=== PATIENT | female | born 1930 | race Caucasian/White ===

== ENCOUNTER 2017-10-04 09:40 | Emergency (ER) | payer MEDICARE ==
[2017-10-04 10:20] LABS: BASOPHILS % (AUTO) 0.7 % (0.0-5.0); EOSINOPHILS % (AUTO) 1.3 % (0.0-8.0); HEMATOCRIT 38.3 % (36-48); MEAN CORPUSCULAR HEMOGLOBIN 28.3 pg (27.0-33.0); MEAN CORPUSCULAR HGB CONC 33.8 g/dL (32.0-36.0); MONOCYTES % (AUTO) 7.5 % (3.0-13.0); NEUTROPHILS % (AUTO) 80.5 % (40.0-77.0); NUCLEATED RED BLOOD CELLS 0.1 % (0.0-0.19); PLATELET COUNT (AUTO) 235 K/uL (130-400); RED BLOOD CELL COUNT(AUTO) 4.56 MIL/uL (4.00-5.50); RED CELL DISTRIBUTION WIDTH 15.3 % (11.0-15.5); WHITE BLOOD COUNT (AUTO) 7.6 K/uL (4.8-10.8)
[2017-10-04 10:31] LABS: CREATININE 0.7 mg/dL (0.5-1.5); POTASSIUM 3.8 mmol/L (3.5-5.1)
[2017-10-04 10:44] LABS: INR 1.06 (0.85-1.15); PARTIAL THROMBOPLASTIN TIME 30.8 SEC (26.3-35.5); PROTHROMBIN TIME 11.1 SEC (9.6-11.6)
[2017-10-04 10:45] LABS: ALBUMIN 3.3 g/dL (3.5-5.0); BILIRUBIN,TOTAL 0.5 mg/dL (0.2-1.0); CREATINE KINASE MB 1.2 ng/mL (0.5-3.6); TOTAL PROTEIN, SERUM 7.6 g/dL (6.0-8.3)
[2017-10-04 10:54] LABS: APPEARANCE,URINE Clear (CLEAR); BILIRUBIN,URINE Negative (NEGATIVE); COLOR,URINE Yellow (YELLOW); GLUCOSE, URINE (UA) Negative (NEGATIVE); KETONES,URINE Negative (NEGATIVE); LEUKOCYTE ESTERASE ,URINE Small (NEGATIVE); NITRATE,URINE Negative (NEGATIVE); OCCULT BLOOD,URINE Negative (NEGATIVE); PROTEIN,URINE Negative (NEGATIVE)
[2017-10-04] MEDS ORDERED: SODIUM CHLORIDE 0.9% 1000ML 1,000 ML IV ONE (10:58)
[2017-10-04 10:59] LABS: BACTERIA,URINE Rare /HPF (None Seen); SQUAMOUS EPITHELIAL CELL,UR Rare /HPF (0-2); WBC,URINE 0-1 /HPF (0-1)
[2017-10-04 11:02] LABS: AMPHET/METH SCREEN,URINE NEGATIVE (NEGATIVE); BARBITURATE SCREEN, URINE NEGATIVE (NEGATIVE); BENZODIAZEPINES SCREEN,URINE NEGATIVE (NEGATIVE); CANNABINOID SCREEN,URINE NEGATIVE (NEGATIVE); COCAINE SCREEN,URINE NEGATIVE (NEGATIVE); OPIATE SCREEN,URINE NEGATIVE (NEGATIVE); PHENCYCLIDINE SCREEN,URINE NEGATIVE (NEGATIVE)
[2018-01-02] MEDS ORDERED: BUSP15 PO (15:02)
[2018-01-02] MEDS ORDERED: BUSP15TA3 PO (15:02)
[2018-01-02] MEDS ORDERED: APIX2.5T PO (15:02)
[2018-01-02] MEDS ORDERED: AMLO5TAB2 PO (15:02)
[2018-01-02] MEDS ORDERED: ISOS30TA6 PO (15:02)
[2018-01-02] MEDS ORDERED: ESCI10TA PO (15:02)
[2018-01-02] MEDS ORDERED: METO25TA3 PO (15:02)
== END 2017-10-04 14:02 | disposition home or self-care (01) ==
LOC: EDH 09:40
DX: F41.1 Generalized anxiety disorder (principal); I48.91 Unspecified atrial fibrillation; I10 Essential (primary) hypertension
CPT/HCPCS: 36415; 70450; 71045; 80053; 80305; 81001; 82550; 82553; 83874; 84484; 85025; 85610; 85730; 93005; 94761; 99285; J7030; 96360; 96361

== ENCOUNTER 2018-09-01 17:16 | Emergency (ER) | payer MEDICARE ==
[~2018-09-01 17:16] MED LIST: AMLO5TAB9 PO; APIX2.5T PO; BUSP15 PO; ESCI10TA PO; ISOS30TA6 PO; METO25TA3 PO
[2018-09-01] MEDS ORDERED: SODIUM CHLORIDE 0.9% 500ML 500 ML IV ONE ×2 (18:41→20:49)
[2018-09-01 19:00] LABS: HEMATOCRIT 36.1 % (36-48); LYMPHOCYTES % (AUTO) 12.4 % (21.0-51.0); MEAN CORPUSCULAR HEMOGLOBIN 29.6 pg (27.0-33.0); MEAN CORPUSCULAR HGB CONC 33.5 g/dL (32.0-36.0); MEAN CORPUSCULAR VOLUME 88.2 fL (79-99); MONOCYTES % (AUTO) 9.7 % (3.0-13.0); NEUTROPHILS % (AUTO) 75.9 % (40.0-77.0); PLATELET COUNT (AUTO) 208 K/uL (130-400); RED CELL DISTRIBUTION WIDTH 13.4 % (11.0-15.5); WHITE BLOOD COUNT (AUTO) 8.4 K/uL (4.8-10.8)
[2018-09-01 19:16] LABS: ALBUMIN 3.1 g/dL (3.5-5.0); BILIRUBIN,TOTAL 0.5 mg/dL (0.2-1.0); CREATININE 0.8 mg/dL (0.5-1.5); POTASSIUM 3.4 mmol/L (3.5-5.1); TOTAL PROTEIN, SERUM 7.6 g/dL (6.0-8.3)
[2018-09-01 20:08] LABS: BILIRUBIN,URINE Negative (NEGATIVE); COLOR,URINE Yellow (YELLOW); GLUCOSE, URINE (UA) Negative (NEGATIVE); KETONES,URINE Negative (NEGATIVE); LEUKOCYTE ESTERASE ,URINE Large (NEGATIVE); NITRATE,URINE Negative (NEGATIVE); OCCULT BLOOD,URINE Negative (NEGATIVE); PROTEIN,URINE Trace (NEGATIVE)
[2018-09-01 20:12] LABS: APPEARANCE,URINE SLIGHTLY CLOUDY (CLEAR)
[2018-09-01 20:22] LABS: RBC,URINE 0-1 /HPF (0-1)
[2018-09-01 20:23] LABS: BACTERIA,URINE Few /HPF (None Seen); SQUAMOUS EPITHELIAL CELL,UR Few /HPF (0-2)
[2018-09-01 20:25] LABS: MUCUS,URINE Rare LPF (None Seen)
[2018-09-01] MEDS ORDERED: LIDOCAINE 5% TOPICAL PATCH TP ONE (21:09)
== END 2018-09-01 22:58 | disposition home or self-care (01) ==
LOC: EDH 17:16
DX: S00.03XA Contusion of scalp, initial encounter (principal); S20.212A Contusion of left front wall of thorax, initial encounter; E87.1 Hypo-osmolality and hyponatremia; E86.0 Dehydration; I48.91 Unspecified atrial fibrillation; F41.9 Anxiety disorder, unspecified; I10 Essential (primary) hypertension; W01.0XXA Fall on same level from slipping, tripping and stumbling without subsequent striking against object, initial encounter; Y93.89 Activity, other specified; Y92.89 Other specified places as the place of occurrence of the external cause; Y99.8 Other external cause status
CPT/HCPCS: 36415; 70450; 80053; 81001; 82270; 84443; 85025; 99284; J7040 ×2

== ENCOUNTER 2019-05-30 17:49 | Inpatient (IN) | payer MEDICARE ==
[~2019-05-30] VITALS: Ht 175.3 cm; Wt 67.4 kg
[2019-05-30 18:22] LABS: BASOPHILS % (AUTO) 0.2 % (0.0-5.0); HEMATOCRIT 42.3 % (36-48); LYMPHOCYTES % (AUTO) 8.9 % (21.0-51.0); MEAN CORPUSCULAR HEMOGLOBIN 29.4 pg (27.0-33.0); MEAN CORPUSCULAR HGB CONC 32.8 g/dL (32.0-36.0); MEAN CORPUSCULAR VOLUME 89.6 fL (79-99); MONOCYTES % (AUTO) 6.2 % (3.0-13.0); NEUTROPHILS % (AUTO) 84.7 % (40.0-77.0); PLATELET COUNT (AUTO) 152 K/uL (130-400); RED BLOOD CELL COUNT(AUTO) 4.72 MIL/uL (4.00-5.50); RED CELL DISTRIBUTION WIDTH 13.8 % (11.0-15.5)
[2019-05-30 18:32] LABS: CREATININE 0.9 mg/dL (0.5-1.5); POTASSIUM 3.9 mmol/L (3.5-5.1)
[2019-05-30 18:37] LABS: ALBUMIN 3.4 g/dL (3.5-5.0); BILIRUBIN,TOTAL 0.5 mg/dL (0.2-1.0); TOTAL PROTEIN, SERUM 8.2 g/dL (6.0-8.3)
[2019-05-30] MEDS ORDERED: SODIUM CHLORIDE 0.9% 1000ML 1,000 ML IV ONE ×2 (19:16→22:51)
[2019-05-30] MEDS ORDERED: IPRATROPIUM/ALBUTEROL SULFATE 3 ML SOLUTION IH ONE (19:38)
[2019-05-30 19:46] LABS: INR 1.09 (0.85-1.15); PARTIAL THROMBOPLASTIN TIME 28.7 SEC (26.3-35.5); PROTHROMBIN TIME 11.4 SEC (9.6-11.6)
[2019-05-30] MEDS ORDERED: IOHEXOL-350 75 ML VIAL IV ONE (21:17)
[2019-05-30] MEDS: SODIUM CHLORIDE 0.9% 1000ML 1,000 ML IV SCH (22:17)
[2019-05-30] MEDS ORDERED: SODIUM CHLORIDE 0.9% 1000ML 1,000 ML IV SCH (22:24)
[2019-05-30] MEDS ORDERED: ONDANSETRON HCL 4 MG/2 ML VIAL IV PRN ×2 (22:30)
[2019-05-30] MEDS: METHYLPREDNISOLONE SOD SUCC 125MG/2ML VIAL IV SCH (22:30)
[2019-05-30] MEDS: CEFTRIAXONE SODIUM 1 GM IV SCH (22:30)
[2019-05-30] MEDS ORDERED: CEFTRIAXONE SODIUM 1 GM IV SCH (22:30)
[2019-05-30] MEDS ORDERED: METHYLPREDNISOLONE SOD SUCC 125MG/2ML VIAL IV SCH (22:30)
[2019-05-30] MEDS ORDERED: HYDRALAZINE HCL 20 MG/ML VIAL IV PRN ×2 (22:30)
[2019-05-30] MEDS ORDERED: AZITHROMYCIN 500MG+NS 250ML 250 ML IV SCH (22:30)
[2019-05-30] MEDS ORDERED: ACETAMINOPHEN 325 MG TAB PO PRN ×4 (22:30)
[2019-05-30] MEDS ORDERED: METHYLPREDNISOLONE SOD SUCC 40MG/ML 1ML ONE (22:51)
[2019-05-30] MEDS ORDERED: CEFTRIAXONE SODIUM 1 GM ONE (22:51)
[2019-05-31] VITALS (7 sets, daily range): BP systolic 141–167; BP diastolic 73–97
[2019-05-31] MEDS: IPRATROPIUM/ALBUTEROL SULFATE 3 ML SOLUTION IH SCH ×5 (00:31→23:34)
[2019-05-31] MEDS: AZITHROMYCIN 500MG+NS 250ML 250 ML IV SCH ×2 (01:43→22:41)
[2019-05-31] MEDS ORDERED: DOCU100T PO (01:56)
[2019-05-31] MEDS ORDERED: ESCI5SOL4 PO (01:56)
[2019-05-31] MEDS ORDERED: GUAIFENESIN-CODEINE 5 ML SYRUP PO PRN (03:45)
[2019-05-31] MEDS ORDERED: GUAIFENESIN-CODEINE 5 ML SYRUP ONE (03:55)
[2019-05-31] MEDS: METHYLPREDNISOLONE SOD SUCC 125MG/2ML VIAL IV SCH ×3 (06:07→22:41)
[2019-05-31 06:27] LABS: BASOPHILS % (AUTO) 0.2 % (0.0-5.0); HEMATOCRIT 39.5 % (36-48); LYMPHOCYTES % (AUTO) 8.4 % (21.0-51.0); MEAN CORPUSCULAR HEMOGLOBIN 30.3 pg (27.0-33.0); MEAN CORPUSCULAR HGB CONC 33.5 g/dL (32.0-36.0); MEAN CORPUSCULAR VOLUME 90.4 fL (79-99); MONOCYTES % (AUTO) 2.7 % (3.0-13.0); NEUTROPHILS % (AUTO) 88.7 % (40.0-77.0); PLATELET COUNT (AUTO) 114 K/uL (130-400); RED BLOOD CELL COUNT(AUTO) 4.36 MIL/uL (4.00-5.50); RED CELL DISTRIBUTION WIDTH 13.1 % (11.0-15.5); WHITE BLOOD COUNT (AUTO) 5.7 K/uL (4.8-10.8)
[2019-05-31 06:46] LABS: ALBUMIN 3.3 g/dL (3.5-5.0); BILIRUBIN,TOTAL 0.5 mg/dL (0.2-1.0); CREATININE 0.5 mg/dL (0.5-1.5); POTASSIUM 3.6 mmol/L (3.5-5.1); TOTAL PROTEIN, SERUM 7.8 g/dL (6.0-8.3)
[2019-05-31] MEDS ORDERED: METOPROLOL TARTRATE 25 MG TAB PO SCH (09:00)
[2019-05-31] MEDS ORDERED: FAMOTIDINE/PF 20 MG/2 ML VIAL IV SCH (09:00)
[2019-05-31] MEDS ORDERED: ENOXAPARIN SODIUM 30 MG/0.3 ML SQ SCH (09:00)
[2019-05-31] MEDS: FAMOTIDINE/PF 20 MG/2 ML VIAL IV SCH ×2 (09:45→22:41)
[2019-05-31] MEDS: METOPROLOL TARTRATE 25 MG TAB PO SCH ×2 (09:45→22:56)
[2019-05-31] MEDS: ENOXAPARIN SODIUM 30 MG/0.3 ML SQ SCH (14:57)
[2019-05-31] MEDS: SODIUM CHLORIDE 0.9% 1000ML 1,000 ML IV SCH (18:17)
--- NOTE | 2019-05-31 18:19 | NUR ---
cm note spoke to pt's spouse pt confused. pt resides athome independent living with spouse, is able to use a walker for ambulation but needs a lot of help. has a caregiver 8-5pm 5days a week for adls and personal care. [place] [facility] [place] discussed possible need for snf level of care, states has been at [facility] in the past. but prefers home unless md really thinks she needs it. pt states he has detention care coverage benefits. and is aware pt is getting weaker. Addendum: 05/31/19 at 1823 by SANTIAGO BENZ CM Amended: Links added.
[2019-05-31] MEDS: CEFTRIAXONE SODIUM 1 GM IV SCH (22:41)
[2019-06-01] MEDS ORDERED: GUAIFENESIN-DM 200/20 MG 10 ML PO PRN (02:45)
[2019-06-01] MEDS ORDERED: GUAIFENESIN-DM 200/20 MG 10 ML ONE (02:46)
[2019-06-01 03:28] VITALS: BP 164/102
[2019-06-01] MEDS: SODIUM CHLORIDE 0.9% 1000ML 1,000 ML IV SCH (03:37)
[2019-06-01] MEDS: IPRATROPIUM/ALBUTEROL SULFATE 3 ML SOLUTION IH SCH ×4 (07:13→23:16)
[2019-06-01 07:53] VITALS: BP 150/83
[2019-06-01] MEDS: METOPROLOL SUCCINATE 12.5 MG PO SCH (09:00)
[2019-06-01] MEDS: DOCUSATE SODIUM 100 MG CAP PO SCH (09:27)
[2019-06-01] MEDS: CITALOPRAM 20 MG TABLET PO SCH (09:27)
[2019-06-01] MEDS: METOPROLOL TARTRATE 25 MG TAB PO SCH ×2 (09:27→22:30)
[2019-06-01] MEDS: ISOSORBIDE MONO 30MG TAB SR PO SCH (09:28)
[2019-06-01] MEDS: AMLODIPINE BESYLATE 5 MG TAB PO SCH (09:28)
[2019-06-01] MEDS: METHYLPREDNISOLONE SOD SUCC 125MG/2ML VIAL IV SCH ×3 (09:29→22:30)
[2019-06-01] MEDS: FAMOTIDINE/PF 20 MG/2 ML VIAL IV SCH ×2 (09:29→22:30)
[2019-06-01] MEDS: ENOXAPARIN SODIUM 30 MG/0.3 ML SQ SCH (09:30)
[2019-06-01 11:40] VITALS: BP 120/73
--- NOTE | 2019-06-01 12:30 | NUR ---
DYSPHAGIA EVAL COMPLETED. +S/S OF ASPIRATION WITH THIN LIQUIDS. RECOMMEND REGULAR TEXTURE, NECTAR-THICK LIQUIDS; PILLS WHOLE WITH LIQUIDS. RECOMMENDATIONS: DYSPHAGIA THERAPY 3-5X WEEK TO INCREASE ORAL MOTOR STRENGTH AND PHARYNGEAL SWALLOW: LTG#1: Pt WILL TOLERATE LEAST RESTRICTIVE DIET TO MEET NUTRITION/HYDRATION WITH NO S/S OF ASPIRATION. LTG#2: SKILLED EDUCATION Pt/FAMILY/STAFF STG#1: Pt WILL PARTICIPATE IN LARYNGEAL ELEVATION/EXCURSION EXERCISES WITH 80% ACCURACY. STG#2: Pt WILL PARTICIPATE IN TONGUE BASE RETRACTION EXERCISES WITH 80% ACCURACY. STG#3: Pt WILL TOLERATE REGULAR TEXTURE, NECTAR-THICK LIQUID DIET WITH NO OVERT S/S OF ASPIRATION. STG#4: Pt WILL TOLERATE THERAPEUTIC TRIALS OF ADVANCED TEXTURE OF THIN LIQUIDS WITH NO OVERT S/S OF ASPIRATION. STG#5: SKILLED EDUCATION Pt/FAMILY/STAFF. Addendum: 06/02/19 at [address] Amended: Links added.
--- NOTE | 2019-06-01 13:58 | NUR ---
RD NOTIFICATION RD consult due to BMI 16.6. Diet: Regular. PO intake <50% and has poor appetite per pt and family. Family along side pt encouraging her to eat lunch at time of visit. BMI is 16.6; classified as underweight. LBM: 06/01 per pt. No complaints of N/V/C/D. Pt is a resident at [facility] where she eats her [address] recommends continue current diet Offer Ensure TID RD will continue to monitor and follow up as needed, thank you. Addendum: 06/01/19 at [address] Amended: Links added.
[2019-06-01 16:00] VITALS: BP 149/78
--- NOTE | 2019-06-01 18:42 | NUR ---
cm note discussed possible snf level of care for this pt, and that spouse will agree if md recommends. states will see pt 1st and speak to spouse
[2019-06-01 20:00] VITALS: BP 157/89
[2019-06-01] MEDS: CEFTRIAXONE SODIUM 1 GM IV SCH (22:29)
[2019-06-01] MEDS: AZITHROMYCIN 500MG+NS 250ML 250 ML IV SCH (22:30)
[2019-06-02] VITALS: BP 149/90
[2019-06-02] MEDS: SODIUM CHLORIDE 0.9% 1000ML 1,000 ML IV SCH ×3 (02:20→18:00)
[2019-06-02 03:48] VITALS: BP 146/88
[2019-06-02 05:08] LABS: HEMATOCRIT 33.7 % (36-48); MEAN CORPUSCULAR HEMOGLOBIN 31.1 pg (27.0-33.0); MEAN CORPUSCULAR HGB CONC 34.6 g/dL (32.0-36.0); MEAN CORPUSCULAR VOLUME 89.9 fL (79-99); PLATELET COUNT (AUTO) 118 K/uL (130-400); RED BLOOD CELL COUNT(AUTO) 3.75 MIL/uL (4.00-5.50); RED CELL DISTRIBUTION WIDTH 13.6 % (11.0-15.5); WHITE BLOOD COUNT (AUTO) 9.1 K/uL (4.8-10.8)
[2019-06-02 05:51] LABS: CARBON DIOXIDE 27 mmol/L (21-32); CHLORIDE 103 mmol/L (101-111); CREATININE 0.4 mg/dL (0.5-1.5); GLOMERULAR FILTR. RATE CALC 160 mL/min (>60); GLUCOSE,RANDOM 143 mg/dL (70-105); PHOSPHORUS 2.8 mg/dL (2.5-4.9); SODIUM SERUM 141 mmol/L (136-145); UREA NITROGEN, BLOOD 15 mg/dL (7-18)
[2019-06-02 05:56] LABS: POTASSIUM 2.6 mmol/L (3.5-5.1)
[2019-06-02] MEDS ORDERED: MAGNESIUM 2GM PREMIX 50ML 50 ML IV ONE (06:07)
[2019-06-02] MEDS ORDERED: POTASSIUM CHLORIDE 10% ELIXIR 20 MEQ/15 ML UDCUP PO PRN (06:15)
[2019-06-02] MEDS ORDERED: MAGNESIUM 2GM PREMIX 50ML 50 ML IV PRN (06:15)
[2019-06-02] MEDS: METHYLPREDNISOLONE SOD SUCC 125MG/2ML VIAL IV SCH ×2 (06:22→15:01)
[2019-06-02] MEDS: IPRATROPIUM/ALBUTEROL SULFATE 3 ML SOLUTION IH SCH ×4 (07:16→23:10)
[2019-06-02 08:00] VITALS: BP 151/83
[2019-06-02] MEDS: AMLODIPINE BESYLATE 5 MG TAB PO SCH (08:59)
[2019-06-02] MEDS: CITALOPRAM 20 MG TABLET PO SCH (08:59)
[2019-06-02] MEDS: ENOXAPARIN SODIUM 30 MG/0.3 ML SQ SCH (08:59)
[2019-06-02] MEDS: DOCUSATE SODIUM 100 MG CAP PO SCH (08:59)
[2019-06-02] MEDS: ISOSORBIDE MONO 30MG TAB SR PO SCH (09:00)
[2019-06-02] MEDS: METOPROLOL SUCCINATE 12.5 MG PO SCH (09:00)
[2019-06-02] MEDS: FAMOTIDINE/PF 20 MG/2 ML VIAL IV SCH ×2 (09:00→21:15)
[2019-06-02] MEDS: METOPROLOL TARTRATE 25 MG TAB PO SCH ×2 (09:00→21:15)
[2019-06-02] MEDS: LIDOCAINE HCL-MPF 1% 2ML VIAL IV PRN ×2 (09:01→12:25)
[2019-06-02] MEDS: POTASSIUM CHLORIDE 20MEQ/100ML 100 ML IV PRN ×2 (09:01→12:25)
[2019-06-02 12:00] VITALS: BP 140/78
--- NOTE | 2019-06-02 13:00 | NUR ---
FAMILY CHOSE [facility] MET W FAMILY AT BEDSIDE; PT SLIGHTLY CONFUSED BUT ALERT- ALL PRESENT WANTING PT TO GO TO A FACILITY TO GET PHYSICAL THERAPY. TIAN SIGNED BY SPOUSE, FACE SHEET UPDATED , ADDED SON'S NAME/ADRESS Addendum: 06/02/19 at 1547 by MURALI MI RN CM Amended: Links added.
--- NOTE | 2019-06-02 15:36 | NUR ---
CM NOTE CLINICALS,PASSR, AND THERAPY NOTES FAXED TO [facility] PER SNF REFERRAL ORDER. [facility] SORTER/ASSAY TECH AWARE OF REFERRAL AND PENDING TO SEE PATIENT, PENDING AUTHORIZATION.
[2019-06-02 16:00] VITALS: BP_SYST 121; BP_SYST 129; BP_DIAS 51; BP_DIAS 71
[2019-06-02 20:00] VITALS: BP 152/92
[2019-06-02] MEDS: AZITHROMYCIN 500MG+NS 250ML 250 ML IV SCH (21:15)
[2019-06-02] MEDS: CEFTRIAXONE SODIUM 1 GM IV SCH (21:16)
[2019-06-02] MEDS: POTASSIUM CHLORIDE 20 MEQ ERTAB PO PRN (21:26)
[2019-06-03] VITALS (7 sets, daily range): BP systolic 136–158; BP diastolic 70–98
[2019-06-03] MEDS: METHYLPREDNISOLONE SOD SUCC 40MG/ML 1ML IVP SCH ×3 (05:13→22:05)
[2019-06-03] MEDS: IPRATROPIUM/ALBUTEROL SULFATE 3 ML SOLUTION IH SCH ×4 (06:24→23:33)
[2019-06-03] MEDS ORDERED: METHYLPREDNISOLONE SOD SUCC 125MG/2ML VIAL IV SCH (06:30)
[2019-06-03] MEDS: METOPROLOL SUCCINATE 12.5 MG PO SCH (09:00)
[2019-06-03] MEDS: FAMOTIDINE/PF 20 MG/2 ML VIAL IV SCH ×2 (10:01→22:04)
[2019-06-03] MEDS: AMLODIPINE BESYLATE 5 MG TAB PO SCH (10:02)
[2019-06-03] MEDS: MAGNESIUM OXIDE 400 MG TABLET PO SCH (10:02)
[2019-06-03] MEDS: CITALOPRAM 20 MG TABLET PO SCH (10:02)
[2019-06-03] MEDS: DOCUSATE SODIUM 100 MG CAP PO SCH (10:02)
[2019-06-03] MEDS: METOPROLOL TARTRATE 25 MG TAB PO SCH ×2 (10:02→22:04)
[2019-06-03] MEDS: ISOSORBIDE MONO 30MG TAB SR PO SCH (10:02)
[2019-06-03] MEDS: ENOXAPARIN SODIUM 30 MG/0.3 ML SQ SCH (10:05)
[2019-06-03] MEDS: POTASSIUM CHLORIDE 20 MEQ ERTAB PO PRN ×2 (10:07→13:48)
--- NOTE | 2019-06-03 12:43 | NUR ---
FOLLOW UP COMPLETED. Pt SEATED IN CHAIR AT 90 DEGREES WITH TRAY SET UP. CAREGIVER AT BEDSIDE. Pt PARTICIPATING IN P.O. OF REGULAR TEXTURE, NECTAR-THICK LIQUIDS AT THIS TIME. Pt WITH NO OVERT S/S OF ASPIRATION PRESENT AT THIS TIME. MEAL OBSERVATION COMPLETED. RECOMMEND CONTINUED REGULAR TEXTURE, NECTAR-THICK LIQUIDS. CAFE ASSISTANT WILL CONTINUE TO FOLLOW Pt. Addendum: 06/03/19 at 1248 by MADELEINE ROPER [facility] Amended: Links added.
--- NOTE | 2019-06-03 13:31 | NUR ---
CARDIOLOGY CONSULT Spoke to Marisa at [facility] and informed her of consult. She will notify Dr. Ivory.
--- NOTE | 2019-06-03 13:57 | NUR ---
GP ADVISED NO DC TODAY. SPOKE TO SERA. PT IS ACCEPTED WHENEVER DC HAPPENS. EMS TRANSPORT
--- NOTE | 2019-06-03 16:00 | NUR ---
TIFFANY CARNES Was notified on consult and he stated he would come and see and evaluate patient.
[2019-06-03] MEDS: AZITHROMYCIN 500MG+NS 250ML 250 ML IV SCH (22:05)
[2019-06-03] MEDS: CEFTRIAXONE SODIUM 1 GM IV SCH (22:05)
[2019-06-04 04:06] VITALS: BP 159/86
[2019-06-04 06:09] LABS: BASOPHILS % (AUTO) 0.3 % (0.0-5.0); HEMATOCRIT 37.2 % (36-48); LYMPHOCYTES % (AUTO) 4.3 % (21.0-51.0); MEAN CORPUSCULAR HEMOGLOBIN 29.9 pg (27.0-33.0); MEAN CORPUSCULAR HGB CONC 33.7 g/dL (32.0-36.0); MEAN CORPUSCULAR VOLUME 88.7 fL (79-99); MONOCYTES % (AUTO) 4.4 % (3.0-13.0); PLATELET COUNT (AUTO) 135 K/uL (130-400); RED CELL DISTRIBUTION WIDTH 13.4 % (11.0-15.5)
[2019-06-04 06:24] LABS: ALBUMIN 3.2 g/dL (3.5-5.0); BILIRUBIN,TOTAL 0.3 mg/dL (0.2-1.0); CREATININE 0.6 mg/dL (0.5-1.5); POTASSIUM 3.8 mmol/L (3.5-5.1); TOTAL PROTEIN, SERUM 6.9 g/dL (6.0-8.3)
[2019-06-04] MEDS: IPRATROPIUM/ALBUTEROL SULFATE 3 ML SOLUTION IH SCH ×3 (07:06→18:27)
[2019-06-04 07:47] VITALS: BP 154/106
[2019-06-04] MEDS: METHYLPREDNISOLONE SOD SUCC 40MG/ML 1ML IVP SCH (07:53)
[2019-06-04] MEDS: METOPROLOL SUCCINATE 12.5 MG PO SCH (08:23)
[2019-06-04] MEDS ORDERED: FUROSEMIDE 10 MG/ML 2ML VIAL IV SCH ×2 (09:14→12:00)
[2019-06-04] MEDS: MAGNESIUM OXIDE 400 MG TABLET PO SCH (10:00)
[2019-06-04] MEDS: METOPROLOL TARTRATE 25 MG TAB PO SCH (10:00)
[2019-06-04] MEDS: DOCUSATE SODIUM 100 MG CAP PO SCH (10:00)
[2019-06-04] MEDS: CITALOPRAM 20 MG TABLET PO SCH (10:01)
[2019-06-04] MEDS: ISOSORBIDE MONO 30MG TAB SR PO SCH (10:01)
[2019-06-04] MEDS: AMLODIPINE BESYLATE 5 MG TAB PO SCH (10:01)
[2019-06-04] MEDS: FAMOTIDINE/PF 20 MG/2 ML VIAL IV SCH (10:01)
[2019-06-04] MEDS: ENOXAPARIN SODIUM 30 MG/0.3 ML SQ SCH (10:04)
[2019-06-04 11:37] VITALS: BP 150/105
--- NOTE | 2019-06-04 13:50 | NUR ---
DISCHARGE Patient has been cleared by cardiology for discharge. Dr. Ivory evaluated him this morning. Dr. Carlton was paged and he was updated when he returned call; stated he will write orders. Charge Nurse Daisha updated.
[2019-06-04 15:42] VITALS: BP 143/86
--- NOTE | 2019-06-04 18:21 | NUR ---
DISCHARGE Dr. Carlton was called to remind him of discharge and did Medication Reconciliation. Discharge was done and report was called to Jaci Lucas LVN at [facility]. [facility] [employer] to come pick patient up for transportation.
--- NOTE | 2019-06-04 19:00 | NUR ---
TRANSPORT Spoke to SHANNAN Beatty at [facility]. Stated spike driver is bringing back the dialysis patient,s then will come to grain picker this patient.
[2019-06-04 19:33] VITALS: BP 159/91
== END 2019-06-04 19:45 | DRG 291 ==
LOC: EDH 17:49 → EDHIP 22:24 → 3AH 22:55
PROVIDERS: ADMIT Internal Medicine; ATTEND Internal Medicine
DX: I11.0 Hypertensive heart disease with heart failure (principal); J18.0 Bronchopneumonia, unspecified organism; J96.01 Acute respiratory failure with hypoxia; E43 Unspecified severe protein-calorie malnutrition; G93.41 Metabolic encephalopathy; J98.11 Atelectasis; I48.19 Other persistent atrial fibrillation; R64 Cachexia; I50.33 Acute on chronic diastolic (congestive) heart failure; E86.0 Dehydration; G30.9 Alzheimer's disease, unspecified; F41.9 Anxiety disorder, unspecified; F32.9 Major depressive disorder, single episode, unspecified; E78.5 Hyperlipidemia, unspecified; F02.80 Dementia in other diseases classified elsewhere, unspecified severity, without behavioral disturbance, psychotic disturbance, mood disturbance, and anxiety; I25.10 Atherosclerotic heart disease of native coronary artery without angina pectoris; K21.9 Gastro-esophageal reflux disease without esophagitis; Z96.641 Presence of right artificial hip joint; W19.XXXA Unspecified fall, initial encounter; Y93.89 Activity, other specified; Y92.89 Other specified places as the place of occurrence of the external cause; Y99.8 Other external cause status; Z68.21 Body mass index [BMI] 21.0-21.9, adult; Z88.5 Allergy status to narcotic agent; Z86.73 Personal history of transient ischemic attack (TIA), and cerebral infarction without residual deficits; R55 Syncope and collapse
CPT/HCPCS: 36415; 70450; 71045; 71275; 80048; 80053; 83735; 83880; 84100; 84132; 84145; 84484; 85025; 85027; 85378; 85610; 85730; 87040; 87804; 92610; 93005; 93306; 93880; 94640; 94664; 97039; G0378; J0360; J0456; J0696; J1650; J1940; J2920; J2930; J3475; J3480; J3490; J7030; Q9967